=== PATIENT | female | born 1940 | race Caucasian/White ===

== ENCOUNTER 2017-04-19 06:57 | Emergency (ER) | payer OTHER ==
[~2017-04-19] VITALS: Ht 170.2 cm; Wt 88.9 kg
[2017-04-19 07:21] LABS: HEMATOCRIT 40.7 % (36.0-46.0); MCH 29.6 PG (29.0-34.0); MCHC 32.9 G/DL (30.0-36.0); MEAN PLAT.VOLUME 10.6 uM^3 (9.5-12.4); PLATELET COUNT 241 K/uL (156-360); RBC DIS.WIDTH-CV 12.6 % (11.8-14.6); RBC DIS.WIDTH-SD 41.6 % (39-53); RED BLOOD COUNT 4.52 M/uL (3.80-5.20)
[2017-04-19 07:54] LABS: ALKALINE PHOSPHATASE 71 IU/L (3-129); ANION GAP 10 MEQ/L (2-14); CHLORIDE 104 MEQ/L (99-109); GFR ESTIMATE (CALCULATED) > 59 mL/min/; GLUCOSE 121 mg/dL (70-99); LIPASE 18 U/L (1.0-51.0); POTASSIUM 4.1 MEQ/L (3.7-5.4); SAMPLE HEMOLYSIS CHECK 0; SAMPLE ICTERIC CHECK 0; SAMPLE LIPEMIA CHECK 0; SODIUM 139 MEQ/L (136-147); TOTAL BILIRUBIN 0.5 MG/DL (0.0-1.0); UREA NITROGEN (BUN) 12 mg/dL (9-23)
[2017-04-19 07:59] LABS: TROP-I INTERPRETATION NEGATIVE; TROPONIN-I < 0.01 ng/mL (0.0-0.30)
[2017-04-19 08:36] LABS: ADD MIUA? NO; BILIRUBIN NEGATIVE; BLOOD NEGATIVE; COLOR STRAW ((YELLOW)); GLUCOSE (STRIP) NEGATIVE; KETONES NEGATIVE; LEUKOCYTES NEGATIVE; NITRITE NEGATIVE; PROTEIN (STRIP) NEGATIVE; SPECIFIC GRAVITY 1.009 (1.000-1.030); UROBILINOGEN 0.2 MG/DL (0.2-1.0)
[2017-04-19] MEDS ORDERED: BENTYL10 MG PO (09:24)
[2017-04-19] MEDS ORDERED: ZOFRAN ODT4 MG PO (09:24)
[2017-04-19 09:36] VITALS: BP 172/82
== END 2017-04-19 09:49 | disposition home or self-care (01) ==
LOC: EME 06:57
PROVIDERS: Nurse Practitioner Family
DX: K80.20 Calculus of gallbladder without cholecystitis without obstruction (principal)
CPT/HCPCS: 74177; 80053; 81003; 83690; 84484; 85027; 99281; 99285; J1885; J2405; J7030

== ENCOUNTER 2017-05-23 05:34 | Day surgery (SDC) | payer OTHER ==
[~2017-05-23] VITALS: Ht 172.7 cm; Wt 86.2 kg
[~2017-05-23 05:34] MED LIST: BENTYL10 MG PO; OMEGA-3 KRILL1 EAC4 PO; PRILOSEC20 MG PO; VITAMIN D31000 UNIT PO; ZOFRAN ODT4 MG PO
[2017-05-23 06:51] VITALS: BP 184/86
[2017-05-23] MEDS ORDERED: NORCO 5/3251 TABLET PO (09:27)
[2017-05-23 10:06] VITALS: BP 168/83
[2017-05-23 11:00] VITALS: BP 149/63
[2017-05-23 13:00] VITALS: BP 154/78
[2017-05-23 15:08] VITALS: BP 154/72
== END 2017-05-23 15:05 | disposition home or self-care (01) ==
LOC: SDC 05:34
DX: K80.10 Calculus of gallbladder with chronic cholecystitis without obstruction (principal); E66.3 Overweight; Z68.29 Body mass index [BMI] 29.0-29.9, adult
CPT/HCPCS: 74300; 88304; 93005; C1769; J0131; J1170; J1885; J2405; J2710; J2765; J3010; S0020